=== PATIENT | female | born 1945 | race Caucasian/White ===

== ENCOUNTER 2018-04-21 01:16 | Outpatient (CLI) | payer MEDICARE, SELFPAY ==
--- NOTE | 2018-04-21 15:14 | DI.RAD_ITS ---
SYMPTOMS/DIAGNOSIS: SCREENING FOR OSTEOPOROSIS IN POSTMENOPAUSAL WOMAN, Z78.0 DEXA SCAN: The scanogram of the dorsolumbar spine reveals no evidence of a compression fracture. For the lumbar spine, a T score of -3.1 and a Z score of -0.9 indicate osteoporosis and a high fracture risk. For the left forearm, a T score of -2.1 and a Z score of 0 are consistent with osteopenia and an increased fracture risk. For the left hip, a T score of -1.5 and a Z score of 0.1 are consistent with osteoporosis and a high fracture risk.
== END 2018-04-21 01:36 ==
PROVIDERS: PCP Family Medicine; Visit Provider Family Medicine
DX: N95.9 Unspecified menopausal and perimenopausal disorder (principal); M81.0 Age-related osteoporosis without current pathological fracture; M85.88 Other specified disorders of bone density and structure, other site
CPT/HCPCS: 77080

== ENCOUNTER 2018-06-18 01:09 | Outpatient (CLI) | payer MEDICARE, OTHER, SELFPAY ==
--- NOTE | 2018-06-18 08:47 | DI.RAD_ITS ---
SYMPTOM/DIAGNOSIS: PAIN THORACIC SPINE M54.9, PAIN MID BACK THORACIC SPINE: AP and lateral views. No acute fractures or subluxations are seen. There are moderately severe degenerative changes in the mid-thoracic spine from T6 through T-11. The paraspinal lines are intact. The bones are normally mineralized. 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 No acute abnormality.
== END 2018-06-18 01:29 ==
PROVIDERS: PCP Family Medicine; Visit Provider Family Medicine
DX: M54.6 Pain in thoracic spine (principal); M47.814 Spondylosis without myelopathy or radiculopathy, thoracic region
CPT/HCPCS: 72072

== ENCOUNTER 2018-12-29 14:18 | Outpatient (CLI) | payer MEDICARE, OTHER, SELFPAY ==
--- NOTE | 2018-12-29 14:15 | DI.RAD_ITS ---
SYMPTOMS/DIAGNOSIS: RT KNEE PAIN, M25.569 RIGHT KNEE: There is mild narrowing of the lateral femoral tibial joint space. There is moderate periarticular spurring at the femoral condyles, tibial plateaus as well as patella. IMPRESSION: Moderate degenerative changes.
== END 2018-12-29 14:38 ==
PROVIDERS: PCP Family Medicine; Visit Provider Emergency Medicine
DX: M25.561 Pain in right knee (principal); M17.11 Unilateral primary osteoarthritis, right knee
CPT/HCPCS: 73562

== ENCOUNTER 2019-04-13 08:08 | Outpatient (CLI) | payer MEDICARE, OTHER, SELFPAY ==
[2019-04-13 09:36] LABS: ALT 23 U/L (14-59); AST 14 U/L (15-37); Albumin 4.1 g/dL (3.4-5.0); Alkaline Phosphatase 61 U/L (46-116); Anion Gap 8.4 mmol/L (3-11); BUN 13 mg/dL (7-18); CO2 27.6 mmol/L (21.0-32.0); Calcium 9.3 mg/dL (8.5-10.1); Calculated LDL 220 mg/dL; Chloride 102 mmol/L (98-107); Cholesterol 323 mg/dL (50-200); Glucose 113 mg/dL (70-100); HDL Cholesterol 74 mg/dL (40-60); Potassium 4.3 mmol/L (3.5-5.1); Sodium 138 mmol/L (136-145); Total Protein 7.3 g/dL (6.4-8.2); Triglyceride 149 mg/dL (30-150)
== END 2019-04-13 08:28 ==
PROVIDERS: PCP Family Medicine; Visit Provider Family Medicine
DX: C50.919 Malignant neoplasm of unspecified site of unspecified female breast (principal); E78.5 Hyperlipidemia, unspecified
CPT/HCPCS: 36415; 80053; 80061

== ENCOUNTER 2019-12-25 10:57 | Emergency (ER) | payer MEDICARE, OTHER, SELFPAY ==
[2019-12-25 11:05] VITALS: BP 134/69; PULSE 90; RESP 18; TEMP 36.4; O2SAT 95
--- NOTE | 2019-12-26 10:16 | ED.GENADUL_ITS ---
Discharge Plan Disposition Patient Disposition: HOME Condition: Stable Discharge Details Chief Complaint: RashLesion Clinical Impression: Rash Primary Care Provider: Brenda Damon ED Provider: Selin Haddad Home Meds and New Rx's Prescriptions: New doxycycline hyclate 100 mg capsule 100 mg PO BID Qty: 20 RF: 0 Continued ketoconazole 2 % shampoo 1 applic TP ONCE Qty: 120 RF: 2 triamcinolone acetonide 0.05 % ointment 1 applic TP BID PRN (Reason: dermatitis) Qty: 430 RF: 1 cholecalciferol (vitamin D3) 1,000 unit capsule 1,000 unit PO DAILY RF: 0 fexofenadine-pseudoephedrine [Ludy-D 12 Hour] 1 EACH tablet extended release 12 hr 1 tab PO DAILY Qty: 90 RF: 4 Restasis 0.05 % dropperette 1 drp Ophthalmic BID 30 Days Qty: 1 RF: 3 Flovent HFA 110 mcg/actuation HFA aerosol inhaler 110 mcg Inhalation BID Qty: 3 RF: 4 valacyclovir [Valtrex] 500 mg tablet 500 mg PO BID PRN (Reason: herpes infection) Qty: 30 RF: 0 albuterol sulfate [Proventil HFA] 90 mcg/actuation HFA aerosol inhaler 2 puff Inhalation Q6H PRN Qty: 3 RF: 4 naproxen sodium [Aleve] 220 mg Capsule 220 mg PO DAILY RF: 0 Discharge Instructions Instructions: Cellulitis (ED) Additional Instructions: Elevate legs for swelling. Wash with soap and water once or twice daily. Consider Benadryl gel/cream topically. Use antibiotic as prescribed. Use caution with sun exposure while on antibiotic and for 3 additional days after completion of course of antibiotic. Return for any increased redness, swelling or ill feeling as discussed. Recheck with PCP for any persistence of symptoms lasting greater than 5 days. Return sooner if needed for worsening or concerns as discussed Discharge Data Discharge Date/Time-TO BE ENTERED AT DEPARTURE: 12/25/19 12:05 Medical Decision Making Is a 74-year-old patient presenting 8 days after tick bite which was removed, likely attached for 4 hours or less. Patient in the last 2 days after having minimal redness or irritation at the site has developed onset of redness and itching. Patient denies any fevers or obvious tickborne illness symptoms. Patient reports the tick was identified as a dog tick. She does not think it was a deer tick. Patient concerned the possibility of skin infection at the site. Of note patient does have an area of erythema however this is nonblanching possibly likely to mechanical irritation from scratching or vasculitis although is very well demarcated and does have some scattered areas surrounding. Patient consider the possibility of infection. Given that patient had no irritation at first does have a small wound noted to the brewster and erythema surrounding this wound will cover for the possibility of infection. We discussed antibiotic use. Will provide doxycycline for skin coverage although it is unlikely that this tick was a deer tick this will provide her reasonable broad-spectrum coverage. Patient agrees with this plan of care. Lyme symptoms discussed. Return precautions discussed. Skin was marked for easy comparison. The patient was stable and requested discharge. Prior to discharge, my usual and customary return precautions were reviewed with the patient - this included follow-up instructions and reasons to return to the Emergency Department if conditions worsens, does not improve as expected, or other new concerns arise. HPI General Date/Time Provider Initiated Documentation: 12/25/19 11:50 . HPI Narrative: 74-year-old patient presenting to the emergency room for tick bite to the left anterior brewster which occurred approximately 8 days ago. Patient reports she did not think it was a deer tick she identified it as a dog tick. Patient was able to remove the entire tick which she believes was attached for approximately 4 hours. Patient reports she has no significant redness at the site but in the last 2 days has began to develop expanding redness at the site of the bite wound. Patient denies any headache, fever, chills. Denies any ill feeling. Denies joint pain. Denies fatigue. Patient reports she feels that her baseline. Patient concerned with the expanding redness which developed in the last few days after area appeared well for approximately 1 week. Patient denies any drainage. No significant pain, mild itching. Related Data Home Medications Medication Instructions Recorded Confirmed fexofenadine-pseudoephedrine 1 tab PO DAILY #90 tab-cap 11/12/17 12/25/19 [Ludy-D 12 Hour] triamcinolone acetonide 0.05 % 1 applic TP BID PRN #430 gm 04/14/19 12/25/19 topical ointment cholecalciferol (vitamin D3) 25 1,000 unit PO DAILY 05/06/19 12/25/19 mcg (1,000 unit) capsule cyclosporine 0.05 % eye drops in a 1 drp OPHTHALMIC BID 30 Days #1 06/24/19 12/25/19 dropperette each fluticasone propionate 110 110 mcg INHALATION BID #3 inhaler 08/06/19 12/25/19 mcg/actuation HFA aerosol inhaler valacyclovir 500 mg tablet 500 mg PO BID PRN #30 tab-cap 09/16/19 12/25/19 albuterol sulfate 90 mcg/actuation 2 puff INHALATION Q6H PRN #3 ea 11/03/19 12/25/19 aerosol inhaler ketoconazole 2 % shampoo 1 applic TP ONCE #120 ml 12/22/19 12/25/19 doxycycline hyclate 100 mg PO BID #20 cap 12/25/19 naproxen sodium [Aleve] 220 mg PO DAILY 12/25/19 Previous Rx's Medication Instructions Recorded fexofenadine-pseudoephedrine 1 tab PO DAILY #90 tab-cap 11/12/17 [Ludy-D 12 Hour] triamcinolone acetonide 0.05 % 1 applic TP BID PRN #430 gm 04/14/19 topical ointment cyclosporine 0.05 % eye drops in a 1 drp OPHTHALMIC BID 30 Days #1 06/24/19 dropperette each fluticasone propionate 110 110 mcg INHALATION BID #3 inhaler 08/06/19 mcg/actuation HFA aerosol inhaler valacyclovir 500 mg tablet 500 mg PO BID PRN #30 tab-cap 09/16/19 albuterol sulfate 90 mcg/actuation 2 puff INHALATION Q6H PRN #3 ea 11/03/19 aerosol inhaler ketoconazole 2 % shampoo 1 applic TP ONCE #120 ml 12/22/19 doxycycline hyclate 100 mg PO BID #20 cap 12/25/19 Allergies Allergy/AdvReac Type Severity Reaction Status Date / Time azithromycin Allergy Intermediate Hives Verified 12/25/19 11:10 ciprofloxacin HCl Allergy Intermediate Hives Verified 12/25/19 11:10 [From Cipro] Penicillins Allergy Intermediate Hives Verified 12/25/19 11:10 rosuvastatin calcium AdvReac Intermediate Muscle Verified 12/25/19 11:10 [From Crestor] Weakness simvastatin AdvReac Intermediate Muscle Verified 12/25/19 11:10 Weakness General Stated Complaint: RashLesion PILO: 4 Review of Systems All systems reviewed & are unremarkable except as noted in HPI and below PFSH Medical History 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 Paternal Grandfather , age 72 COPD (chronic obstructive pulmonary disease) Mustard gas poisoning Maternal Grandmother , age 76 Uterine cancer Daughter Hyperlipidemia Son No problems noted. Paternal Grandmother , age 78 No problems noted. Social History Smoking/Tobacco Use Status: Never Alcohol Intake: current Alcohol Intake frequency: a few times a week Alcohol type: wine Drug use: Never Substance use type: does not use Caregiver/Support person: No Household members: spouse Housing: house Communication Needs: None Do you need help understanding health information?: Never Pets and animals: No Sexually active: No Do you think of yourself as: straight/heterosexual Current gender identity: female What is your relationship status?: How often do you talk on the phone with friends or family?: three or more times per week How often do you get together with friends or relatives?: three or more times per week How often do you attend jew or rastafari services?: decline to answer Do you belong to any clubs or organized social groups?: no Panel score (0-1 are the most socially isolated patients): 2 What type of physical activity do you participate in: walking Duration: 15-30 minutes/day Frequency: 3-4 times per week Елена/Congregation: No preference Special елена needs: No Seatbelt use: always Drive intox or ride w/intox local delivery driver: No Do you feel safe at home: Yes Exam Narrative Exam Narrative: CONST: Healthy appearing patient, in no acute distress. Well hydrated. Alert and oriented. HENMT: Head nomocephalic, normal to inspection. Atraumatic. Hearing grossly normal. EYES: General normal appearance. Alignment normal. Eyelids normal. Conjunctiva normal. NECK: Normal visual inspection. FROM. Trachea midline. No Midline tenderness. CHEST: Normal insepection of the chest. RESP: Normal respiratory effort. Speaking full sentences. No cough. No audible wheezing. No retractions. CARDIO: No JVD. MUSCULOSKELETAL: Normal Gait. FROM of all extremities. SKIN: Normal. Dry. No rashes. Left pretibial brewster with an area of erythema approximately 2 cm x 2 cm. Area has scattered erythema surrounding. Nonblanching. No drainage. No sign of abscess. Centralized around bite wound. No obvious retained foreign body. NEURO: Alert and awake. Speech clear. PSYCH: Normal affect. Cooperative. Course Vital Signs Vital signs: Vital Signs Temperature 36.4 C L 12/25/19 11:05 Pulse 90 12/25/19 11:05 Respiratory Rate 18 12/25/19 11:05 Blood Pressure 134/69 12/25/19 11:05 Pulse Oximetry 95 12/25/19 11:05 Temperature 36.4 C L 12/25/19 11:05 Temperature Source Skin 12/25/19 11:05 Pulse 90 12/25/19 11:05 Respiratory Rate 18 12/25/19 11:05 Respiratory Effort Non-Labored 12/25/19 11:08 Blood Pressure 134/69 12/25/19 11:05 Blood Pressure Position Sitting 12/25/19 11:05 Pulse Oximetry 95 12/25/19 11:05 Oxygen Delivery Method Room Air 12/25/19 11:05 Oxygen Flow Rate 0 12/25/19 11:05 Pain Level 1 12/25/19 11:05
== END 2019-12-25 12:05 | disposition home or self-care (01) ==
PROVIDERS: Emergency Provider Physician Assistant; PCP Family Medicine
DX: S80.862A Insect bite (nonvenomous), left lower leg, initial encounter (principal); L53.9 Erythematous condition, unspecified; W57.XXXA Bitten or stung by nonvenomous insect and other nonvenomous arthropods, initial encounter
CPT/HCPCS: 99283

== ENCOUNTER 2019-12-29 01:46 | Outpatient (CLI) | payer MEDICARE, OTHER, SELFPAY ==
--- NOTE | 2019-12-29 07:45 | DI.RAD_ITS ---
EXAM: XR RIBS LT W PA LAT CHEST CLINICAL HISTORY: (L) ant.upper thoracic pain wt mvt/hx of breast ca,R07.9 TECHNIQUE: COMPARISON: CR XR thoracic spine complete from 06/18/2018 FINDINGS: PA and lateral views of the chest and 2 additional views of the left ribs were obtained. There appea rs to have been a prior left mastectomy. The lungs are clear. No pleural effusion seen. Mediastina l contours appear normal. No rib abnormality identified, if there is a high clinical suspicion of rib pathology additional eval uation with bone scan may be considered. IMPRESSION: Negative examination of the chest and ribs.
== END 2019-12-29 02:06 ==
PROVIDERS: PCP Family Medicine; Visit Provider Family Medicine
DX: R07.9 Chest pain, unspecified (principal); R07.82 Intercostal pain; Z85.3 Personal history of malignant neoplasm of breast
CPT/HCPCS: 71046; 71100

== ENCOUNTER 2020-04-17 01:11 | Outpatient (CLI) | payer MEDICARE, OTHER, SELFPAY ==
[2020-04-19 04:56] LABS: Patient Race White; SARS-CoV-2 RNA Undetected (Undetected); SARS-CoV-2 Specimen Source Nasopharynx
== END 2020-04-17 01:31 ==
PROVIDERS: PCP Family Medicine; Visit Provider Family Medicine
DX: Z11.59 Encounter for screening for other viral diseases (principal)
CPT/HCPCS: U0003

== ENCOUNTER 2020-05-17 04:40 | Outpatient (CLI) | payer MEDICARE, OTHER, SELFPAY ==
[2020-05-17 11:35] LABS: Calculated LDL 157 mg/dL (<100); Cholesterol 273 mg/dL (<200); HDL Cholesterol 68 mg/dL (40-60); Triglyceride 244 mg/dL (<150)
== END 2020-05-17 05:00 ==
PROVIDERS: PCP Family Medicine; Visit Provider Family Medicine
DX: E78.5 Hyperlipidemia, unspecified (principal)
CPT/HCPCS: 36415; 80061

== ENCOUNTER 2020-07-25 03:38 | Outpatient (CLI) | payer MEDICARE, OTHER, SELFPAY ==
[2020-07-25 09:24] LABS: ALT 28 U/L (14-59); AST 16 U/L (15-37); Albumin 4.3 g/dL (3.4-5.0); Alkaline Phosphatase 66 U/L (46-116); Anion Gap 7.8 mmol/L (3-11); BUN 18 mg/dL (7-18); Bilirubin, Total 1.5 mg/dL (0.2-1.0); CO2 29.2 mmol/L (21.0-32.0); CREATININE 0.95 mg/dL (0.55-1.02); Calcium 9.2 mg/dL (8.5-10.1); Chloride 102 mmol/L (98-107); Estimated GFR 57.66 (mL/min/1.73m2); Glucose 112 mg/dL (74-106); Potassium 4.1 mmol/L (3.5-5.1); Sodium 139 mmol/L (136-145); Total Protein 7.5 g/dL (6.4-8.2)
== END 2020-07-25 03:58 ==
PROVIDERS: PCP Family Medicine
DX: E78.5 Hyperlipidemia, unspecified (principal); Z00.00 Encounter for general adult medical examination without abnormal findings
CPT/HCPCS: 36415; 80053

== ENCOUNTER 2020-08-09 03:53 | Outpatient (CLI) | payer MEDICARE, OTHER, SELFPAY ==
[2020-08-09 10:36] LABS: Calculated LDL 151 mg/dL (<100); Cholesterol 248 mg/dL (<200); HDL Cholesterol 73 mg/dL (40-60); Triglyceride 120 mg/dL (<150)
== END 2020-08-09 03:54 | disposition home or self-care (01) ==
LOC: LBO 03:53
PROVIDERS: PCP Family Medicine; Visit Provider Family Medicine
DX: E78.5 Hyperlipidemia, unspecified (principal)
CPT/HCPCS: 36415; 80061

== ENCOUNTER → 2021-03-01 12:52 | Outpatient (BNVA) | payer MEDICARE, OTHER, SELFPAY | PROVIDERS: PCP Family Medicine; Referring Provider Family Medicine; Visit Provider Physical Therapy Assistant | DX: Z12.11 Encounter for screening for malignant neoplasm of colon (principal); Z86.010 Personal history of colon polyps; R01.1 Cardiac murmur, unspecified; R06.02 Shortness of breath ==

== ENCOUNTER 2021-03-02 03:32 | Outpatient (CLI) | payer MEDICARE, OTHER, SELFPAY ==
--- NOTE | 2021-03-02 07:15 | DI.US_ITS ---
APPROVED REPORT EXAM: Comprehensive 2D, Doppler, and color-flow Echocardiogram Patient Location: Out-Patient Computer Networker: Vania Kinney RDCS (AE) Indications: New murmur, SOB with activity Other Information Study Quality: Good Conclusion Normal left ventricular wall thickness and chamber size. Estimated ejection fraction is 60%. There are no segmental wall motion abnormalities Normal right ventricular size and systolic function Both atria are normal in size There is no significant valvular disease Wall motion Left Ventricle The left ventricle is normal size. The left ventricular systolic function is normal. The left ventric ular ejection fraction is within the normal range. There is normal left ventricular wall thickness. T here is normal LV segmental wall motion. There is no ventricular septal defect visualized. LVEF is 60 %. Right Ventricle The right ventricle is normal size. The right ventricular systolic function is normal. The RVSP is 26 .6mmHg. Atria The left atrium size is normal. The right atrium size is normal. The interatrial septum is intact wit h no evidence for an atrial septal defect. Aortic Valve The aortic valve is normal in structure. Aortic valve is trileaflet. There is no aortic valvular sten osis. No aortic regurgitation is present. Mitral Valve The mitral valve is normal in structure. No evidence of mitral valve stenosis. Trace mitral regurgita tion. Tricuspid Valve The tricuspid valve is normal in structure. There is no tricuspid valve stenosis. Trace tricuspid reg urgitation. Pulmonic Valve The pulmonary valve is normal in structure. There is no pulmonic valvular stenosis. Trace pulmonic re gurgitation. Great Vessels The aortic root is normal in size. The ascending aorta is normal in size. Aortic arch is normal in ca liber. IVC is normal in size and collapses >50% with inspiration. Pericardium There is no pericardial effusion. 2D Dimensions IVSD d PLAX 0.97 cm F: 0.6-1.0 LV Vol A2C d MOD 62.6 mL LVPW d PLAX 0.96 cm F: 0.6 - 1.0 LV Vol A4C d MOD 58.5 mL LVID d PLAX 4.11 cm F: 3.8 - 5.2 LA vol/ BSA A2C s A-L 12.8 mL/m2 LVDs 2.85 cm F: 2.2 - 3.5 LA vol/ BSA A4C s A-L 17.2 mL/m2 Ao Root d 2.75 cm F: 2.7 - 3.3 LA Vol/ BSA Biplane s A-L 15.5 mL/m2 RA Area A4C 10.50 cm2 LA Area A4C s MOD 13.35 cm2 RA Vol/ BSA A4C s A-L 12.4 mL/m2 LA Area A2C s MOD 11.04 cm2 Ao Asc Diam d 3.15 cm F: 2.3 - 3.1 LV EF A4C MOD 60.1 % LV EF Teichholz 58.0 % LV EF A2C MOD 61.0 % LVEF (Adame's) 61.02 % F: 54 - 74 LV EF Biplane MOD 61.0 % LV Volume 47.93 mL F: 46 - 106 SV 37.29 mL LV Volume Index 27.23 mL/m2 F: 29 - 61 SV Index 21.20 mL/m2 LV Vol Biplane MOD 61.1 mL FS 30.15 % M-Mode TAPSE 2.32 cm (M/F) >1.7 LV Diastology MV E' medial 0.079 (>0.07 m/s) E/A Ratio 0.8 LV E/e MED 7.15 (<14) MV E Vmax 0.57 (0.4-1.3 m/s) MV E' lateral 0.089 (>0.1 m/s) MV A Vmax 0.75 (0.4-1.3 m/s) LV E/e LAT 6.35 (<14) MV E/A Ratio 0.73 MV E/E' medial 7.16 MV E/E' lateral 6.38 Aortic Valve LVOT Area 2.85 cm2 AoV Area Vmax 2.49 cm2 LVOT Vmax 1.23 m/s AoV Area/ BSA (Vmax) 1.42 cm2/m2 LVOT Mean Adi. 0.81 m/s BEBETO Mean Adi. 2.23 cm2 LVOT Peak Grad 6.0 mmHg BEBETO Mean Adi. Index 1.27 cm2/m2 LVOT Mean Grad 3.1 mmHg LVOT VTI 0.236 m LVOT Diam s 1.90 cm AoV Vmax 1.41 m/s Velocity Ratio 0.87 AoV Mean Adi. 1.04 m/s AoV Peak Grad 7.9 mmHg LVOT SV 67.23 mL AoV Mean Grad 4.6 mmHg AoV VTI 0.229 m AoV Area VTI 2.94 cm2 AoV Area/ BSA (VTI) 1.67 cm/m2 Mitral Valve MV DT 421 (160-240 msec) MV PHT 122 msec MV Area PHT 1.80 cm2 MV VTI 0.193 m MV VTI Annulus 0.202 m MV Area VTI 3.66 (4.0-6.0 cm2) Pulmonary Valve PV Vmax 1.16 (0.5-1.5 m/s) RVOT Peak Gr. 1.98 mmHg PV Peak Grad 5.4 mmHg RVOT Mean Gr. 1.00 mmHg PV Mean Grad 2.6 mmHg RVOT VTI 0.131 m PV VTI 0.199 m RVOT Vmax 0.70 m/s Tricuspid Valve TR Peak Grad 23.5 mmHg TR Vmax 2.43 m/s RA Pressure 3.00 mmHg RVSP (TR) 26.6 mmHg
== END 2021-03-02 03:52 ==
PROVIDERS: PCP Family Medicine; Visit Provider Physical Therapy Assistant
DX: R01.1 Cardiac murmur, unspecified (principal); R06.02 Shortness of breath
CPT/HCPCS: 93306

== ENCOUNTER 2021-03-19 01:22 | Outpatient (CLI) | payer MEDICARE, OTHER, SELFPAY ==
--- NOTE | 2021-03-19 07:15 | DI.NM_ITS ---
APPROVED REPORT Exam: Exercise Treadmill Patient Location: Out-Patient Room/Bed: Stress Nurse: Monica Emery RN Ordering Provider:PIPO BENITES, Contact Number: [phone] BMI: 28.69 Baseline Rhythm: Sinus Rhythm Indications: Exertional dyspnea. Medical History Medical History: Breast cancer, Asthma, Heart murmur, HLD Cardiac Medications: Pravastatin, Albuterol sulfate inhaler Allergies: Azithromycin, Ciprofloxacin HCL, PNCs, Rosuvastatin, Simvastatin Cardiac Risk Factors: Hyperlipidemia, FHX of CAD, Asthma Previous Cardiac Procedures: None Pretest Chest Pain Characteristics: No chest pain Exercise History: Sedentary Physical Disabilities: None Lung Sounds: Clear to auscultation Heart Sounds: Regular Stress Test Details Test: Exercise stress testing was performed using a Efraín protocol. Nuclear Acquisition: Rest Tc-99m/Stress Tc-99m 1 day Rest Isotope: Tc-99m Sestamibi. Dose: 10.0 Date: 03/19/2021 Injection Time: 0900 Stress Isotope: Tc-99m Sestamibi. Dose: 32.0 Date: 03/19/2021 Injection Time: 1027 HR Resting HR Supine: 76 bpm Max Heart Rate (APMHR): 147.212124 bpm Resting HR Standin bpm Target HR (85% APMHR): 124.718400 bpm Max HR Achieved: 136 bpm % of APMHR: 92.52 Recovery HR: 95 bpm HR response to stress: Normal HR response to stress BP Resting BP Supine: 126/80 mmHg Resting BP Standin/82 mmHg Max BP: 164/70 mmHg Recovery BP: 130/80 mmHg BP response to stress: Normal blood pressure response to stress. ECG Resting ECG: Sinus Rhythm Ectopy: None Stress ECG: Sinus Tachycardia ST Change: No significant ST segment changes noted Arrhythmia: rare PVC, PAC Recovery ECG: Sinus Rhythm Recovery ST Change: No significant ST segment changes noted Recovery Arrhythmia: PACs Clinical Reason for Termination: Fatigue Stress Symptoms: General Fatigue, Dyspnea Exercise duration: 6 min31 sec Highest Stage Reached: Stage 3: 3.4 mph at 14% grade. Exercise capacity: 7.85 METs Rate Pressure Product: [id number] Stress ECG Conclusion 1. The patient exercised for 6 minutes and 30 seconds (7.8 METS). 2. Patient no symptoms suggestive of ischemia. 3. There is no evidence of ischemia on the ECG portion of the exam. Stress Test Summary STAGE Time (mins) Speed (mph) Grade (%) HR BP SYMPTOMS METS Supine 76 126/80 Standing 80 126/82 1 3 1.7 10 118 140/76 SpO2 95% 4.6 2 6 2.5 12 128 SpO2 95%, moderate dyspnea 7 1 min recovery 112 164/70 SpO2 96%, symptoms resolved 3 min recovery 102 142/76 6 min recovery 95 130/80 MPI Conclusion The ejection fraction was greater than 70% with stress. There were no wall motion abnormalities. There was no evidence of ischemia on the imaging portion exam. This represents a normal SPECT stress test. Radiologist Interpretation Radiologist agrees with Industrial Conveyor Belt Repairer's Interpretation. Radiologist Interpretation by: Tania Rock MD Interpretation Date/Time: 03/19/2021 15:50:38
== END 2021-03-19 01:42 ==
PROVIDERS: PCP Family Medicine; Visit Provider Family Medicine
DX: R06.09 Other forms of dyspnea (principal); E78.5 Hyperlipidemia, unspecified; Z82.49 Family history of ischemic heart disease and other diseases of the circulatory system; J45.909 Unspecified asthma, uncomplicated
CPT/HCPCS: 78452; 93016; 93018; 93017

== ENCOUNTER 2021-08-17 02:37 | Outpatient (CLI) | payer MEDICARE, SELFPAY ==
[2021-08-17 16:01] LABS: TSH (W/Ref FT4) 1.33 uIU/mL (0.36-3.74)
== END 2021-08-17 02:38 | disposition home or self-care (01) ==
LOC: LBO 02:37
PROVIDERS: Visit Provider Family Medicine
DX: E03.9 Hypothyroidism, unspecified (principal)
CPT/HCPCS: 36415; 84443

== ENCOUNTER 2021-10-10 02:40 | Outpatient (CLI) | payer MEDICARE, SELFPAY ==
[2021-10-10 09:30] LABS: ALT 26 U/L (14-59); AST 16 U/L (15-37); Albumin 4.4 g/dL (3.4-5.0); Alkaline Phosphatase 73 U/L (46-116); Anion Gap 8.7 mmol/L (3-11); BUN 16 mg/dL (7-18); Bilirubin, Total 1.4 mg/dL (0.2-1.0); CO2 27.3 mmol/L (21.0-32.0); CREATININE 0.8 mg/dL (0.55-1.02); Calcium 9.2 mg/dL (8.5-10.1); Calculated LDL 173 mg/dL (<100); Chloride 102 mmol/L (98-107); Cholesterol 270 mg/dL (<200); Glucose 114 mg/dL (74-106); HDL Cholesterol 75 mg/dL (40-60); Potassium 4.3 mmol/L (3.5-5.1); Sodium 138 mmol/L (136-145); Total Protein 7.1 g/dL (6.4-8.2); Triglyceride 111 mg/dL (<150)
== END 2021-10-10 02:41 | disposition home or self-care (01) ==
LOC: LBO 02:40
PROVIDERS: Visit Provider Family Medicine
DX: E78.5 Hyperlipidemia, unspecified (principal)
CPT/HCPCS: 36415; 80053; 80061

== ENCOUNTER → 2021-11-29 02:18 | Outpatient (CLI) | payer MEDICARE, SELFPAY ==
--- NOTE | 2021-11-29 15:23 | DI.RAD_ITS ---
Exam(s) XR KNEE RT 3V AP,LAT,CHANTEL EXAM: XR KNEE RT 3V AP,LAT,CHANTEL CLINICAL HISTORY: CHRONIC PAIN - G89.29, PAIN IN KNEE - M25.569. TECHNIQUE: 2D digital imaging was performed of the right knee. Three views obtained. AP, lateral an d PA tunnel views were obtained. COMPARISON: CR XR knee RT 3V AP,lat,chantel from 12/29/2018 FINDINGS: BONES: No acute fracture is present. No bony destructive lesion is seen. JOINTS: The knee is normally aligned. There does appear to be a very small joint effusion. Tricompar tment degenerative changes are present with joint space narrowing and periarticular spurring. The fi ndings are most marked at the patellofemoral and lateral femoral tibial joint. SOFT TISSUE: Normal. IMPRESSION: Mild progression of the degenerative changes in the right knee particularly in the lateral femoral ti bial joint. DATA REPOSITORY: RADIATION DOSE DELIVERED:
== END ==
DX: M25.561 Pain in right knee (principal); G89.29 Other chronic pain; M25.461 Effusion, right knee; M17.11 Unilateral primary osteoarthritis, right knee
CPT/HCPCS: 73562

== ENCOUNTER → 2022-12-19 11:06 | Outpatient (BNVA) | payer MEDICARE, SELFPAY | PROVIDERS: PCP Nurse Practitioner Family; Visit Provider Physical Therapy Assistant | DX: Z12.11 Encounter for screening for malignant neoplasm of colon (principal); Z86.010 Personal history of colon polyps ==

== ENCOUNTER 2023-02-11 07:12 | Day surgery (SDC) | payer MEDICARE, SELFPAY ==
--- NOTE | 2023-02-10 15:39 | HPE_ITS ---
Date of service: 02/11/23 Time of Service: 08:44 Assessment and Plan Assessment and plan (1) Asthma: Status: Chronic (2) Breast cancer: Status: Chronic (3) Hyperlipidemia: Status: Chronic Qualifiers: Hyperlipidemia type: mixed hyperlipidemia Qualified Code(s): E78.2 - Mixed hyperlipidemia (4) Osteopenia: Status: Chronic (5) Tubular adenoma of colon: Status: Chronic Assessment and plan: Informed consent is obtained for the procedural (explained in simple layman's terms that the pt. and/or family could understand) explaining risks vs benefits and alternatives to the procedure and consequences if we do not do the procedure and need/rational for the procedure. Risks include but are not limited to: bleeding, infection, perforation of esophagus, stomach, colon, small intestines, bronchus or trachea, or PTX. This would necessitate emergency surgery to repair the damage w/ possible ostomy; and other associated complications w/ the required surgery. Also complications of anesthesia including aspiration, MT/CVA/. 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 They completed a bowel prep with just a clear yellow residual effluent.? They not having any chest pain or shortness of breath, currently.? They are not experiencing any fever or chills.? They deny any productive cough or upper respiratory tract infection signs or symptoms.? They are not having abdominal pain, or nausea and vomiting.? They have not had any changes in medications, past medical history or past surgical history since previously being seen in the office. They have not had any accidents or have been in the ER since the clinic pre-operative evaluation. ??I reviewed the procedure with the patient today, including risks and benefits of the procedure, and what they could expect at home for recovery.? All questions are answered to the patient?s satisfaction today, and they are stable to proceed with the proposed procedure. -pt notes she requires more fiber to get her bowels to move. She was on prednisone and ended January 28 for asthma exacerbation. She will get some dexamethasone from anethesia today- hx of asthma. No cough or wheezing today. Clinic 12/19/22: 77 y/o female with history of breast cancer (s/p lupectomy bilaterally, L mastectomy and radiation bilaterally), asthma and hyperlipidemia presents for colonoscopy screening pre-op.?Her last colonoscopy was in 2014 at [facility] [place] and was remarkable for tubular adenomatous polyp.? She denies any family history of colon cancer.?She denies a family history of colon cancer. She denies any changes in bowel habits including bloody or black tarry stools, abdominal pain, diarrhea or constipation. She denies constitutional symptoms.? She denies chest pain, palpitations, dyspnea or dyspnea with exertion. She denies prior history or family history of adverse reactions or complications with anesthesia. The patient denies any history of stroke, MT, seizures, bleeding or clotting disorders. She denies having any implanted metal in her body. Review of Systems All systems reviewed & are unremarkable except as noted in HPI and below PFSH All Active Problems Asthma (Chronic) Breast cancer (Chronic 12/06/13) s/p bilateral partial mastectomies 05/18 for dcis and lobular in situ s/p radiation. tamoxifen started 03/18 HSV (herpes simplex virus) infection (Chronic 12/27/13) Hyperlipidemia (Chronic 02/01/13) Osteopenia (Chronic 06/05/04) Tubular adenoma of colon (Chronic 04/24/15) [facility] [place] Vitiligo (Chronic) Cervical radiculopathy due to degenerative joint disease of spine (Chronic 12/27/13) History of gynecological procedure (Acute) Hematuria (Acute) Cataract (Acute 04/16/13) Immunization counseling (Acute) Encounter for annual physical exam (Acute) Seborrheic dermatitis of scalp (Acute) Murmur (Acute) Chronic knee pain (Acute) Hair loss (Acute) Fungal toenail infection (Acute) Medical History Colon cancer screening 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 Paternal Grandfather , age 72 COPD (chronic obstructive pulmonary disease) Mustard gas poisoning Maternal Grandmother , age 76 Uterine cancer Daughter Hyperlipidemia Asthma Son No problems noted. Paternal Grandmother , age 78 No problems noted. Social History Smoking/Tobacco Use Status: Never Second Hand Exposure: Yes Smoking risk assessment performed?: Yes Alcohol Intake: current Alcohol Intake frequency: a few times a week Alcohol type: wine Substance use type: does not use Counseling given: No Counseling provided: none Caregiver/Support person: No Household members: spouse Housing: house Communication Needs: None Do you need help understanding health information?: Never Pets and animals: No Sexually active: No Do you think of yourself as: straight/heterosexual Current gender identity: female What is your relationship status?: How often do you talk on the phone with friends or family?: three or more times per week How often do you get together with friends or relatives?: twice per week How often do you attend orthodoxy or episcopal services?: decline to answer Do you belong to any clubs or organized social groups?: no Panel score (0-1 are the most socially isolated patients): 2 What type of physical activity do you participate in: walking Duration: 15-30 minutes/day Frequency: 1-2 times per week Special shwetha needs: No Seatbelt use: always Helmet use: Yes Helmet use: always Drive intox or ride w/intox inventory associate and driver: No Do you feel safe at home: Yes Do you feel safe in your relationship?: Yes Victim of physical abuse: No Victim of emotional abuse: No Victim of sexual abuse: No Would you like helpful sources: No Meds Allergies and Home Medications Allergies Allergy/AdvReac Type Severity Reaction Status Date / Time azithromycin Allergy Intermediate Hives Verified 02/11/23 07:38 ciprofloxacin HCl Allergy Intermediate Hives Verified 02/11/23 07:38 [From Cipro] Penicillins Allergy Intermediate Hives Verified 02/11/23 07:38 rosuvastatin calcium AdvReac Intermediate Muscle Verified 02/11/23 07:38 [From Crestor] Weakness simvastatin AdvReac Intermediate Muscle Verified 02/11/23 07:38 Weakness Home Medications Medication Instructions Recorded Confirmed Type fexofenadine 60 mg-pseudoephedrine 1 tab PO DAILY #90 tab-caps 11/12/17 02/11/23 Rx ER 120 mg tablet,ext.release,12 hr (Ludy-D 12 Hour) cholecalciferol (vitamin D3) 25 1,000 unit PO DAILY 05/06/19 02/10/23 History mcg (1,000 unit) capsule naproxen sodium 220 mg capsule 440 mg PO DAILY 03/12/22 02/10/23 History (Aleve) albuterol sulfate 90 mcg/actuation 2 puff inhalation Q6H PRN #3 ea 07/03/22 02/11/23 Rx aerosol inhaler (Proventil HFA) pravastatin 20 mg tablet 20 mg PO QHS #90 tabs 07/03/22 02/11/23 Rx valacyclovir 500 mg tablet 500 mg PO BID PRN herpes infection 07/03/22 02/10/23 Rx (Valtrex) #30 tab-caps Flovent HFA 110 mcg/actuation 110 mcg inhalation BID #12 grams 08/19/22 02/11/23 Rx aerosol inhaler (fluticasone propionate) prednisone 10 mg tablet 10 mg PO DIRECTED #30 tabs 01/17/23 02/10/23 Rx Exam Narrative Exam Narrative: PHYSICAL EXAM GENERAL APPEARANCE: Alert, healthy appearance, oriented, x 3,? in no acute distress HYDRATION: Well hydrated HEAD, EYES, EARS, NECK, THROAT: Head is normocephalic, pupils equal, round, reactive to light and accommodation, ocular movement intact, sclera clear and no jaundice. ?Dentition intact. LUNGS: normal respiration/normal chest excursion. ?Clear to auscultation bilaterally. ?No wheeze. ?HEART: Regular rate and rhythm. no murmurs EXTREMITY: No edema or cyanosis.? no leg pain, redness, swelling.? ABDOMEN: soft and non-tender to palpation.? Normal bowel sounds.? Time Spent Time spent with Patient: <40 minutes Time was spent: preparing to see the patient(eg.review tests), obtaining and/or reviewing separately otained hiistory, ordering medications,tests, procedures, referring, communicating with other health restorative care technician, indepentently interpreting results, counseling the patient and care coordination
--- NOTE | 2023-02-10 15:42 | PDOC.DSDIS_ITS ---
Date of service: 02/11/23 Time of Service: 09:26 Discharge Plan Disposition Patient Disposition: Home Condition: Good Discharge Details Reason For Visit: colon scope Attending Provider: Myriam Ogden Primary Care Provider: Justo Carrillo Home Meds and New Rx's Prescriptions: Continued prednisone 10 mg tablet 10 mg PO DIRECTED Qty: 30 0RF Rx Instructions: Take 40mg for 3 days, 30mg for 3 days, 20mg for 3 days, 10mg for 3 days and then stop. cholecalciferol (vitamin D3) 1,000 unit capsule 1,000 unit PO DAILY albuterol sulfate [Proventil HFA] 90 mcg/actuation HFA aerosol inhaler 2 puff Inhalation Q6H PRN Qty: 3 4RF pravastatin 20 mg tablet 20 mg PO QHS Qty: 90 3RF valacyclovir [Valtrex] 500 mg tablet 500 mg PO BID PRN (Reason: herpes infection) Qty: 30 2RF fexofenadine-pseudoephedrine [Ludy-D 12 Hour] 1 EACH tablet extended release 12 hr 1 tab PO DAILY Qty: 90 4RF fluticasone propionate [Flovent HFA] 110 mcg/actuation HFA aerosol inhaler 110 mcg Inhalation BID Qty: 12 8RF Rx Instructions: take one puff twice a day naproxen sodium [Aleve] 220 mg capsule 440 mg PO DAILY Discontinued bisacodyl [Dulcolax (bisacodyl)] 5 mg tablet,delayed release (DR/EC) 5 mg PO ONCE Qty: 4 0RF Rx Instructions: Take per colonoscopy instructions provided by ordering providers office polyethylene glycol 3350 17 gram/dose powder 17 g PO ONCE Qty: 238 0RF Rx Instructions: Take per colonoscopy instructions provided by ordering providers office Discharge Instructions Additional Instructions: DSU Colonoscopy Post- Op Instructions Instructions for Everyone who is given Anesthesia: For your safety, please do the following for the next twenty-four (24) hours: *Do Not operate a motor vehicle (car, truck, motorcycle, etc.) *Do Not drink alcoholic beverages or use any recreational drugs for the first 24 hours or while taking pain medications. The medications in your body may have a reaction that can be dangerous. *Do Not make any important decisions or sign any important papers. Findings: No polyps Diverticula make sure you are moving your bowels on a regular basis and you are not straining to go to the bathroom. If you have problems with constipation or straining, consider starting a fiber supplement such as Metamucil daily Follow up: No further routine colonoscopies are required. If you should ever notice any pain or difficulty having a bowel movement, blood in the stool, unexplained weight loss, or change in your bowel habits, please contact your health provider. 1. No lifting over 20 pounds or strenuous activity for the first 24 hours after your procedure. After 24 hours there are no restrictions on your activity but you may feel fatigued for a few days. 2. After you arrive home you may have a light meal and return to your normal diet as you can tolerate it without feeling sick to your stomach. 3. You may have a bloated, gaseous feeling in your belly (abdomen) after a colonoscopy. Passing gas and belching will help. Walking or lying down on your left side with your knees flexed may relieve the discomfort. Call the office at [phone] (Office) or [phone] (Hospital) right away if you notice any of the following: a.Vomiting of blood or ?coffee ground stools?. b.Rectal bleeding 1Tbsp, blood clots or continuous bleeding. c.Severe belly (abdominal) pain. d.A hard distended belly (abdomen) and an inability to pass gas. 4. Please don?t expect to have a normal BM (bowel movement) for 2-3 days after your procedure. 5. If there are questions regarding the findings of your procedure, please contact your doctor 6. If you are unable to contact your doctor with a problem, contact the hospital at [phone]. 7. Continue all your regular medications unless directed otherwise. I understand the above instructions and have no questions. Signature of Patient or Adult Escort Name of Responsible Adult Escort Signature of Nurse Date/Time Activity:: See above Diet:: See above DS: Diagnosis Discharge Diagnosis (1) Asthma: Status: Chronic (2) Breast cancer: Status: Chronic (3) Hyperlipidemia: Status: Chronic (4) Osteopenia: Status: Chronic (5) Tubular adenoma of colon: Status: Chronic Asessment and Plan: The patient is seen and examined after their colonoscopy.? The patient has been able to pass gas.? They are not having abdominal pain.? They have been able to tolerate liquids and a snack.? They do not have any nausea or vomiting.? They are not having any chest pain or shortness of breath.??? They are not having any rectal bleeding. Their vital signs have been stable-see nursing notes. We discussed findings during their colonoscopy, and any biopsies that were done/polyps that were removed. The patient will be sent a letter with any biopsy results, and when to repeat the colonoscopy.-see discharge instructions. Patient was given explicit instructions to follow-up regarding colonoscopy-refer to discharge instructions.? We reviewed resumption of medications. Patient verbalized understanding and discharged in stable and satisfactory condition- See nursing notes. 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
--- NOTE | 2023-02-10 15:44 | W.COLOREPORT ---
Date of service: 02/11/23 Time of Service: 09:22 Colonoscopy Report Date of procedure: 02/11/23 Pre-op diagnosis general: Adenomatous polyps Post-op diagnosis procedure note: other (Diverticula of right colon and sigmoid colon.) Surgeon: Myriam Ogden Anesthesia Type: General:No Airway Estimated blood loss (mL): 0 Pathology: none sent Complications: None Disposition: same day Prep: Miralax/Dulcolax Retraction Time: 9 mins Procedure Description: After informed consent was obtained the patient was taken to the procedure room and placed in a left decubitous position. Monitors were applied and a time out was done. The patients name, date of , procedure, allergies to medications and metal in their body was reviewed. The patient was then sedated. Once sedated and comfortable a rectal exam was done. External exam was normal. Internal exam revealed a normal sphincter tone and no palpable masses. The scope was then introduced and retrofelexed. No some internal hemorrhoids were identified. The scope was then advanced to the cecum with some difficulty. She did require abdominal pressure. She has a very tortuous colon. The TI and appendiceal orifice were identified. The prep was BBPS 2 in the right colon and BBPS 3 in the transverse to left colon for a total of 8. No polyps are visualized today. She has few largemouth diverticula in the right colon. There are none in the transverse. She has multiple small mouth diverticula in the sigmoid colon. There is no signs of active bleeding or infection. The scope was then slowly retracted over 9 minutes back into the rectum. . The scope was removed and the patient was woken up and taken back to Same day surgery in stable condition. The patient tolerated the procedure well and there were no immediate complications. Follow up: The patient does not require any further screening colonoscopies, unless they develop changes in bowel habits or other new gastrointestinal complaints.
[2023-02-11 07:20] VITALS: BP 139/80; PULSE 91; RESP 20; TEMP 36.3; O2SAT 93
[2023-02-11] MEDS: Lactated Ringers 1,000 ML 80 ML IV (08:03)
--- NOTE | 2023-02-11 08:28 | W.ANESPRE ---
General Info Date of Service Date Performed: 02/11/23 Height: 5 ft 3.5 in Weight: 72.5 kg Body Mass Index (BMI): 27.8 Surgical Procedure: Operation Date: 02/11/23 08:20 Proposed Procedure Side Surgeon mary alice Ogden, DO Meds Allergies and Home Medications Allergies Allergy/AdvReac Type Severity Reaction Status Date / Time azithromycin Allergy Intermediate Hives Verified 02/11/23 07:38 ciprofloxacin HCl Allergy Intermediate Hives Verified 02/11/23 07:38 [From Cipro] Penicillins Allergy Intermediate Hives Verified 02/11/23 07:38 rosuvastatin calcium AdvReac Intermediate Muscle Verified 02/11/23 07:38 [From Crestor] Weakness simvastatin AdvReac Intermediate Muscle Verified 02/11/23 07:38 Weakness Home Medication Medication Instructions Recorded fexofenadine 60 mg-pseudoephedrine 1 tab PO DAILY #90 tab-caps 11/12/17 ER 120 mg tablet,ext.release,12 hr (Ludy-D 12 Hour) cholecalciferol (vitamin D3) 25 1,000 unit PO DAILY 05/06/19 mcg (1,000 unit) capsule naproxen sodium 220 mg capsule 440 mg PO DAILY 03/12/22 (Aleve) albuterol sulfate 90 mcg/actuation 2 puff inhalation Q6H PRN #3 ea 07/03/22 aerosol inhaler (Proventil HFA) pravastatin 20 mg tablet 20 mg PO QHS #90 tabs 07/03/22 valacyclovir 500 mg tablet 500 mg PO BID PRN herpes infection 07/03/22 (Valtrex) #30 tab-caps Flovent HFA 110 mcg/actuation 110 mcg inhalation BID #12 grams 08/19/22 aerosol inhaler (fluticasone propionate) prednisone 10 mg tablet 10 mg PO DIRECTED #30 tabs 01/17/23 Current Visit Medications: Current Medications Generic Name Dose Route Start Last Admin Trade Name Freq PRN Reason Stop Dose Admin Ringer's Solution 1,000 mls @ 80 mls/hr 02/11/23 06:00 02/11/23 08:03 IV 03/12/23 23:59 80 mls/hr INFUSION ZHENG Administration IV Miscellaneous Supplies 1 each 02/11/23 06:00 Iv Access IV 03/12/23 23:59 DIRECTED ZHENG Sodium Chloride 0 ml 02/11/23 06:00 Normal Saline Flush 10 Ml Syr IV 03/12/23 23:59 PRN PRN Sodium Chloride 0 ml 02/11/23 06:00 Normal Saline 10 Ml Vial IJ 03/12/23 23:59 DIRECTED PRN Sterile Water 0 ml 02/11/23 06:00 Water,Injection,Sterile 10 Ml Vial IJ 03/12/23 23:59 DIRECTED PRN PFSH Active Problems Active Problems: Problem Status Onset Code Asthma J45.909 Breast cancer 12/06/13 C50.919 HSV (herpes simplex virus) infection 12/27/13 B00.9 Hyperlipidemia 02/01/13 E78.5 Osteopenia 06/05/04 M85.80 Tubular adenoma of colon 04/24/15 D12.6 Vitiligo L80 Cervical radiculopathy due to degenerative joint disease of spine 12/27/13 M47.22 History of gynecological procedure Z98.890 Hematuria R31.9 Cataract 04/16/13 H26.9 Immunization counseling Z71.89 Encounter for annual physical exam Z00.00 Seborrheic dermatitis of scalp L21.9 Murmur R01.1 Chronic knee pain M25.569, G89.29 Hair loss L65.9 Fungal toenail infection B35.1 Medical History Medical History Colon cancer screening 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 Screening for colon cancer Surgical History Surgical History Biopsy of breast (~04/2012) [facility] [place]/L LUMPECTOMY Colonoscopy - MAC (~2003) Endometrial Biopsy 2002-NEG 2008-NEG Extraction of cataract RIGHT EYE 04/13/13 LEFT EYE 03/30/13 Hx of left mastectomy Tobacco Smoking/Tobacco Use Status: Never Passive smoking exposure: Yes (As a child) Second hand exposure: Yes Alcohol Alcohol Intake: current Alcohol intake frequency: a few times a week Alcohol type: wine Substance Use Substance use type: does not use Counseling provided: none Vital Signs and Lab Results Vital Signs Most Recent Vital Signs in EMR: Most Recent Vital Signs Temp Pulse Resp BP Pulse Ox 36.3 C L 91 H 20 139/80 93 02/11/23 07:20 02/11/23 07:20 02/11/23 07:20 02/11/23 07:20 02/11/23 07:20 Lab Results Blood Type / Crossmatch: No Data to Display Complete Blood Count: No Data to Display Complete Metabolic Panel: No Data to Display Liver Function Panel: No Data to Display Coagulation Panel: No Data to Display Cardiac Panel: No Data to Display Arterial Blood Gas: No Data to Display Venous Blood Gas: No Data to Display Pancreas Panel: No Data to Display Thyroid Panel: No Data to Display Infectious Disease: No Data to Display Blood Cultures: No Data to Display Toxicology Panel: No Data to Display Anesthesia Assessment and Plan Anesthesia History Personal History: No History of Anesthesia Complications Family History: No Family History of Anesthesia Complications Exercise Tolerance Exercise Tolerance: Metabolic Equivalents>4 Pertinent Negatives Pertinent Negatives: No Symptoms of GERD Cardiac & Pulmonary Exam Cardiac Exam: Normal S1/S2 Heart Sounds Pulmonary Exam: Clear Bilateral Breath Sounds Implantable Cardiac Device Does patient have a Pacemaker or an ICD?: No Airway Exam Known Difficult Airway: No Mallampati Class: 2 Mouth Opening: Normal (> 3cm) Thyromental Distance: Greater than 3 cm Neck Range of Motion: Full ROM Neck Circumference: Normal Teeth Condition: Normal Dentition ASA Classification ASA Score: ASA 2 Emergency Case?: No NPO Status NPO Status: NPO Clears >2 hours, Solids >8 hours Anesthesia Plan Resuscitation Status: Full Code Anesthesia Technique: General Anesthesia Airway Planned: Natural Airway Monitors Used: Standard Monitors
[2023-02-11 08:29] VITALS: BMI 27.8
[2023-02-11 09:22] VITALS: BP 113/63; PULSE 84; RESP 16; TEMP 36.7; O2SAT 95
--- NOTE | 2023-02-11 09:26 | W.ANESPOSTOP ---
Postoperative Evaluation Date, Time and Location Date Performed: 02/11/23 Time Performed: 09:26 Patient Location: Day Surgery Unit Vital Signs Most Recent Imported Vital Signs: Most Recent Vital Signs Temp Pulse Resp BP Pulse Ox 36.3 C L 91 H 20 139/80 93 02/11/23 07:20 02/11/23 07:20 02/11/23 07:20 02/11/23 07:20 02/11/23 07:20 Assessment Mental Status: Awake (Alert & Oriented to Patient Baseline) Airway and Respiratory Function: Patent airway with normal (patient baseline) respiratory exam Cardiovascular Function: Hemodynamically Stable Hydration Status: Adequately Hydrated Nausea & Vomiting: No Nausea or Vomiting Pain: Pt. Denies Any Pain Peripheral Nerve Block: Patient did not receive a nerve block
[2023-02-11 09:52] VITALS: BP 132/81; PULSE 88; RESP 17; TEMP 36.7; O2SAT 95
== END 2023-02-11 10:30 | disposition home or self-care (01) ==
PROVIDERS: PCP Nurse Practitioner Family; Visit Provider Surgery
PROC: 0DJD8ZZ Inspection of Lower Intestinal Tract, Via Natural or Artificial Opening Endoscopic (ICD-10-PCS; CPT 45378; principal; 2023-02-11 08:15)
DX: Z12.11 Encounter for screening for malignant neoplasm of colon (principal); Z86.010 Personal history of colon polyps; Z85.3 Personal history of malignant neoplasm of breast; K57.30 Diverticulosis of large intestine without perforation or abscess without bleeding; K64.8 Other hemorrhoids
CPT/HCPCS: G0105; J1100

== ENCOUNTER → 2023-03-28 14:16 | Outpatient (CLI) | payer MEDICARE, SELFPAY ==
--- NOTE | 2023-03-28 | DI.RAD_ITS ---
Exam(s) XR KNEE RT 3V AP,LAT,CHANTEL EXAM: XR KNEE RT 3V AP,LAT,CHANTEL CLINICAL HISTORY: RT KNEE PAIN, M25.561, ACUTE ON CHRONIC PAIN, NO TRAUMA. TECHNIQUE: 2D digital imaging was performed. Three views. COMPARISON: No exams were available for comparison FINDINGS: BONES: No acute fracture is present. No bony destructive lesion is seen. JOINTS: There is severe narrowing of the lateral femoral tibial joint with prominent periarticular sp urring. The medial femoral tibial joint space is maintained. Spurring at the patellofemoral joint. No joint effusion is seen. SOFT TISSUE: Normal. IMPRESSION: Degenerative changes greatest of the lateral femoral tibial joint. DATA REPOSITORY: RADIATION DOSE DELIVERED:
== END ==
PROVIDERS: PCP Nurse Practitioner Family; Visit Provider Physician Assistant Medical
DX: M17.11 Unilateral primary osteoarthritis, right knee (principal)
CPT/HCPCS: 73562

== ENCOUNTER 2023-08-15 02:56 | Outpatient (CLI) | payer MEDICARE, SELFPAY ==
[2023-08-15 08:27] LABS: ALT 24 U/L (14-59); AST 16 U/L (15-37); Albumin 4.1 g/dL (3.4-5.0); Alkaline Phosphatase 62 U/L (46-116); Anion Gap 7.1 mmol/L (3-11); BUN 14 mg/dL (7-18); Bilirubin, Total 1.4 mg/dL (0.2-1.0); CO2 29.9 mmol/L (21.0-32.0); CREATININE 0.8 mg/dL (0.55-1.02); Calcium 9.1 mg/dL (8.5-10.1); Calculated LDL 99 mg/dL (<100); Chloride 103 mmol/L (98-107); Cholesterol 181 mg/dL (<200); Estimated GFR 76.31 (mL/min/1.73m2); Glucose 147 mg/dL (74-106); HDL Cholesterol 71 mg/dL (40-60); Potassium 4.2 mmol/L (3.5-5.1); Sodium 140 mmol/L (136-145); Total Protein 7.1 g/dL (6.4-8.2); Triglyceride 59 mg/dL (<150)
== END 2023-08-15 02:57 | disposition home or self-care (01) ==
LOC: LBO 02:56
PROVIDERS: PCP Nurse Practitioner Family; Visit Provider Nurse Practitioner Family
DX: E78.2 Mixed hyperlipidemia (principal)
CPT/HCPCS: 36415; 80053; 80061

== ENCOUNTER → 2023-09-04 03:45 | Outpatient (CLI) | payer MEDICARE, SELFPAY ==
--- NOTE | 2023-09-04 07:30 | DI.DEXA_ITS ---
Exam(s) XR DEXA BONE DENSITY W/WO NANCY EXAM: XR DEXA BONE DENSITY W/WO NANCY CLINICAL HISTORY: f/u osteoporosis from 2018,osteopenia,menopausal,perimenopausal disorder, TECHNIQUE: COMPARISON: No exams were available for comparison FINDINGS: Lateral Spine Image: There is grade 1 anterolisthesis of L4 on L5. No compression deformities identi fied. Left hip: Total T-Score: -1.8 Total Z-Score: 0.0 T- and Z-scores: Findings are consistent with osteopenia. There is osteoporosis in the femoral neck with a T-score of -3.0. Lumbar Spine: Total T-Score: -3.1 Total Z-Score: -0.6 T- and Z-scores: Findings are consistent with osteoporosis. IMPRESSION: Findings of osteoporosis in the lumbar spine and left hip.
== END ==
PROVIDERS: PCP Nurse Practitioner Family; Visit Provider Family Medicine
DX: Z13.820 Encounter for screening for osteoporosis; M81.0 Age-related osteoporosis without current pathological fracture
CPT/HCPCS: 77080

== ENCOUNTER 2024-01-14 19:41 | Outpatient (REF) | payer MEDICARE, SELFPAY | END 2024-01-14 19:42 | disposition home or self-care (01) | LOC: LBN 19:41 | PROVIDERS: PCP Nurse Practitioner Family; Visit Provider Physician Assistant Medical | DX: L28.2 Other prurigo (principal) | CPT/HCPCS: 87070; 87205 ==

== ENCOUNTER 2024-09-23 01:37 | Outpatient (CLI) | payer MEDICARE, SELFPAY ==
[2024-09-23 09:37] LABS: ALT 23 U/L (14-59); AST 17 U/L (15-37); Albumin 4.1 g/dL (3.4-5.0); Alkaline Phosphatase 68 U/L (46-116); Anion Gap 7.6 mmol/L (3-11); BUN 16 mg/dL (7-18); Bilirubin, Total 1.8 mg/dL (0.2-1.0); CO2 27.4 mmol/L (21.0-32.0); CREATININE 0.9 mg/dL (0.55-1.02); Calcium 9.2 mg/dL (8.5-10.1); Calculated LDL 133 mg/dL (<100); Chloride 105 mmol/L (98-107); Cholesterol 231 mg/dL (<200); Estimated GFR 65.84 (mL/min/1.73m2); Glucose 110 mg/dL (74-106); HDL Cholesterol 78 mg/dL (>or=50); Sodium 140 mmol/L (136-145); Total Protein 7.2 g/dL (6.4-8.2); Triglyceride 104 mg/dL (<150); Vitamin D 25 Total 33 ng/mL (30-100)
== END 2024-09-23 01:38 | disposition home or self-care (01) ==
PROVIDERS: PCP Nurse Practitioner Family; Visit Provider Nurse Practitioner Family
DX: E78.2 Mixed hyperlipidemia (principal); M81.0 Age-related osteoporosis without current pathological fracture
CPT/HCPCS: 36415; 80053; 80061; 82306

== ENCOUNTER 2025-06-27 12:59 | Outpatient (CLI) | payer MEDICARE, SELFPAY ==
[2025-06-27 16:16] LABS: Abs Immature Grans 0.02 10^3/uL (0.0-0.06); HCT 46.8 % (36.0-46.0); HGB 15.4 g/dL (11.2-15.7); Immature Grans % 0.3 %; MCH 30.3 pg (27.0-33.0); MCHC 32.9 % (32.0-36.0); MCV 92 fL (80-95); MPV 10.2 fL (8.0-11.0); Platelet Count 251 10^3/uL (130-400); RBC 5.08 10^6/uL (3.93-5.22); RDW 12.0 % (11.7-14.6); RDW-SD 41.1 fL; WBC 6.87 10^3/uL (4.4-10.8)
[2025-06-27 16:37] LABS: TSH (W/Ref FT4) 1.37 uIU/mL (0.55-4.78)
[2025-06-27 16:43] LABS: ALT 20 U/L (10-49); AST 21 U/L (<34); Albumin 4.5 g/dL (3.2-5.0); Alkaline Phosphatase 69 U/L (46-116); Anion Gap 12.7 mmol/L (3-11); BUN 19 mg/dL (9-23); Bilirubin, Total 1.3 mg/dL (0.2-1.2); CO2 24.3 mmol/L (20.0-31.0); Calcium 9.7 mg/dL (8.3-10.6); Chloride 104 mmol/L (98-107); Glucose 91 mg/dL (74-106); Potassium 4.1 mmol/L (3.5-5.1); Sodium 141 mmol/L (136-145); Total Protein 7.0 g/dL (5.7-8.2)
[2025-06-28 10:10] LABS: Lyme Ab w Rflx to Lyme Confirm Negative (Negative)
[2025-06-30 12:49] LABS: B. miyamotoi PCR Negative (Negative); Babesia divergens/MO-1 Negative (Negative); Ehrlichia muris eauclairensis Negative (Negative)
== END 2025-06-27 13:00 | disposition home or self-care (01) ==
LOC: LOS 12:59
PROVIDERS: PCP Nurse Practitioner Family; Visit Provider Nurse Practitioner Family
DX: R53.81 Other malaise (principal)
CPT/HCPCS: 36415; 80053; 87798; 84443; 85025; 86618